=== PATIENT | female | born 1990 | race Caucasian/White ===

== ENCOUNTER 2016-11-22 15:51 | Emergency (ER) ==
--- NOTE | 2016-11-22 18:00 | PROVIDER DOCUMENTATION ---
HPI-General Adult - General Chief Complaint: Cold Symptoms Stated Complaint: CONGESTION/COUGH/BODY ACHES Time Seen by Provider: 11/22/16 17:53 Source: patient Allergies/Adverse Reactions: Patient Allergies Allergy/AdvReac Type Severity Reaction Status Date / Time latex Allergy HIVES Verified 08/11/15 22:54 Penicillins Allergy RASH Verified 08/11/15 22:54 - History of Present Illness -Gen Adult Nature of Presenting Problems: 26 y/o WF c/o cough, congestion, back pain x 2 days. Pt states coughing up green mucus. Denies any fever/chills, vomiting, abd. pain. States low back pain that is bilat. States no urinary sxs; currently on menstrual cycle. States nausea, diarrhea. LMP: 20 November 2016. States boyfriend is sick with similar sxs. Denies influenza vaccine. Review of Systems - Adult - REVIEW OF SYSTEMS - ADULT Constitutional: reports: no symptoms reported. denies: chills, fever Eyes: reports: no symptoms reported. denies: blurred vision, double vision Ears, Nose, Mouth & Throat: reports: no symptoms reported. denies: ear pain, nose pain Cardiovascular: reports: no symptoms reported. denies: chest pain, palpitations Respiratory: reports: see HPI, cough, wheezing. denies: shortness of breath Gastrointestinal: reports: see HPI, diarrhea, nausea. denies: abdominal pain, constipation, vomiting Genitourinary: reports: no symptoms reported. denies: dysuria, frequency Musculoskeletal: reports: see HPI, back pain. denies: joint pain, joint swelling Integumentary: reports: no symptoms reported. denies: nail changes, rash Neurological: reports: no symptoms reported. denies: headache/migraines, numbness, paresthesia Psychiatric: reports: no symptoms reported Endocrine: reports: no symptoms reported. denies: cold intolerance, heat intolerance Hematologic/Lymphatic: reports: no symptoms reported. denies: easy bruising, prolonged bleeding Allergic/Immunologic: reports: no symptoms reported All Other Systems: Reviewed and Negative Past History - Adult - PAST MEDICAL HISTORY-ADULT Review of Records: reports: Nursing Assessment Review, Medications Reviewed Major Childhood Illnesses: reports: denies history Cardiovascular: reports: denies history Respiratory: reports: asthma (seasonal asthma) Gastrointestinal: reports: denies history Obstetrical/Gynecological: reports: denies history Genitourinary: reports: denies history Musculoskeletal: reports: denies history Neurological: reports: denies history Endocrine/Immune: reports: denies history Other Conditions: reports: denies history - SOCIAL HISTORY Smoking: quit greater than 1 year Alcohol Use Frequency: never Physical Exam-General - PHYSICAL EXAM-ADULT Initial Vital Signs Reviewed: Yes - CONSTITUTIONAL General Appearance: alert, mild distress - EYES Eyes: pink conjunctivae - HEAD, EARS, NOSE, MOUTH & THROAT HENMT: normocephalic/atraumatic, moist mucous membranes, pharynx normal. negative: tonsillar exudate - NECK Neck: supple, normal inspection. negative: lymphadenopathy - RESPIRATORY Respiratory: crackles (bilat LL). negative: rales, rhonchi, stridor, wheezing - CARDIOVASCULAR Cardiovascular: regular rate, rhythm. negative: bradycardia, tachycardia - GASTROINTESTINAL (ABDOMEN) Abdominal Exam: normal bowel sounds, non tender, soft. negative: distended, guarding, rigid, rebound - MUSCULOSKELETAL Back Exam: normal inspection, no vertebral tenderness, other (bilat low back) Extremity: normal gait - SKIN Integumentary: normal color, normal turgor, warm/dry - NEUROLOGIC Neurologic: negative: aphasia - PSYCHIATRIC Psych/Mental Status: normal mood/affect, normal thought content, normal thought process, oriented x 3 Progress - PLAN OF CARE/RESULTS Progress/Plan/Lab Results: Laboratory Tests 11/22/16 18:07 Urine Source CLEAN CATCH Urine Color YELLOW Urine Turbidity HAZY Urine pH 6.5 Ur Specific [place] 1.024 Urine Protein TRACE A Ur Glucose (Stick) NEGATIVE Ur Ketones (Stick) TRACE A Urine Blood NEGATIVE Urine Nitrite NEGATIVE Urine Bilirubin NEGATIVE Urobilinogen Dipstick 3 A Urine Leukocytes MODERATE A Urine WBC (Auto) TNTC A Urine RBC (Auto) <10 U Epithel Cells (Auto) <10 Urine Bacteria (Auto) 2+ Orders Category Date Time Status ED: Urine Bedside ORDERED Care 11/22/16 17:56 Active CHEST-2 VIEWS [RAD] Stat Exams 11/22/16 17:56 Taken URINALYSIS W/POSS RFLX CULT [URINALYSIS] Stat Lab 11/22/16 18:07 Completed URINE CULTURE [RM] Routine Lab 11/22/16 18:24 Received Hydrocodone/APAP 7.5 mg/325 mg [[place]-7.5] Med 11/22/16 18:43 Discontinued 1 each PO NOW ONE Ondansetron Odt [Zofran Odt] Med 11/22/16 18:43 Discontinued 4 mg PO NOW ONE Vital Signs Temp Pulse Resp BP Pulse Ox 11/22/16 18:55 98.3 F 74 18 107/59 100 11/22/16 16:19 98.4 F 74 18 102/59 100 latex Allergy (Verified 08/11/15 22:54) HIVES Penicillins Allergy (Verified 08/11/15 22:54) RASH Meloxicam [Mobic] 7.5 mg PO DAILY PRN PRN #15 tablet 08/11/15 Cephalexin [Keflex] 500 mg PO BID #10 capsule 11/22/16 Guaifenesin/D-Methorphan Hb/PE [Deconex Dmx Tablet] 1 each PO TID #30 tablet 10/27 Ondansetron [Zofran] 4 mg PO Q6H PRN PRN #20 tablet 11/22/16 Prednisone 20 mg PO DAILY #12 tablet 11/22/16 I&O 11/21/16 11/22/16 11/23/16 06:59 06:59 06:59 Output Total 40 Balance -40 Laboratory 11/22/16 18:07 Urine Source CLEAN CATCH Urine Color YELLOW Urine Turbidity HAZY Urine pH 6.5 Ur Specific [place] 1.024 Urine Protein TRACE A Ur Glucose (Stick) NEGATIVE Ur Ketones (Stick) TRACE A Urine Blood NEGATIVE Urine Nitrite NEGATIVE Urine Bilirubin NEGATIVE Urobilinogen Dipstick 3 A Urine Leukocytes MODERATE A Urine WBC (Auto) TNTC A Urine RBC (Auto) <10 U Epithel Cells (Auto) <10 Urine Bacteria (Auto) 2+ Discussed results and f/u with pt. - XRAY 1 XRAY Study: Chest XRAY Interpretation: No PNA Departure - Departure Time of Disposition Order: 18:39 DIAGNOSIS: Nausea UTI (urinary tract infection) Qualifiers: Urinary tract infection type: acute cystitis Hematuria presence: with hematuria Qualified Code(s): N30.01 - Acute cystitis with hematuria URI (upper respiratory infection) Qualifiers: URI type: unspecified URI Qualified Code(s): J06.9 - Acute upper respiratory infection, unspecified Disposition: HOME 01 Certified Medical Emergency: Emergent Condition: Stable Additional Instructions: Take medications as directed. Follow up with PCP in 5-7 days for recheck. Drink plenty of fluids. ED Follow Up Instructions: You have been treated by a care provider in the Emergency Department. These instructions are being provided to you so you can have an understanding of how to care for yourself upon discharge. Upon discharge from the Emergency Department, you are responsible for making arrangements for follow-up care by a physician of your choice. Take all prescribed medications as directed. Return to the Emergency Department immediately for any new or worsening symptoms. You may call the Physician Referral phone number at [phone] to obtain a list of Physicians who are taking new patients. Prescriptions: Guaifenesin/D-Methorphan Hb/PE [Deconex Dmx Tablet] 1 each PO TID #30 tablet Cephalexin [Keflex] 500 mg PO BID #10 capsule Prednisone 20 mg PO DAILY #12 tablet Ondansetron [Zofran] 4 mg PO Q6H PRN PRN #20 tablet PRN Reason: Nausea Referrals: None,PCP [Primary Care Provider] - Forms: Return to School/Parent Work Instructions: Upper Respiratory Infection, Adult, Urinary Tract Infection, Easy -to-Read Attestation - Physician/ Mid-level Attestation Patient care was provided by Mid-level provider (FRONT DESK CLERK/PA):: Yes Mid-level provider:: Lesly Sanchez Mid-level documentation review:: The Mid-level provider documentation, treatment plan and medical decision making was reviewed by the physician who agrees with all treatment and medical decision making by the P.
[2016-11-22 18:15] LABS: URINE MICRO REVIEW NEEDED? NO; URINE SOURCE CLEAN CATCH
[2016-11-22 18:19] LABS: BILIRUBIN URINE NEGATIVE (NEGATIVE); BLOOD URINE NEGATIVE (NEGATIVE); COLOR YELLOW; GLUCOSE URINE NEGATIVE (NEGATIVE); LEUKOCYTES URINE MODERATE (NEGATIVE); NITRITE URINE NEGATIVE (NEGATIVE); PH URINE 6.5; PROTEIN URINE TRACE mg/dL (NEGATIVE); SP GRAVITY URINE 1.024; TURBIDITY URINE HAZY (CLEAR); UROBILINOGEN URINE 3 mg/dL (NORMAL)
[2016-11-22 18:20] LABS: UR EPITHELIAL CELLS <10 /HPF (<10); URINE BACTERIA 2+ /HPF; URINE CULTURE NEEDED? YES; URINE RBC <10 /HPF (<10); URINE WBC TNTC /HPF (<10)
[2016-11-22] MEDS ORDERED: NORCO-7.5 PO ONE (18:43)
[2016-11-22] MEDS ORDERED: ZOFRAN ODT PO ONE (18:43)
[2016-11-22 18:56] VITALS: BP 107/59
--- NOTE | 2016-11-23 07:48 | Diag Imaging Result Document ---
PROCEDURE NAME: CHEST-2 VIEWS - 11/22/2016 FRONTAL AND LATERAL CHEST, TWO VIEWS: FINDINGS: The lungs are well expanded. The heart is not enlarged. The vessels are not distended. There are no infiltrates. No pleural effusions. IMPRESSION: No pneumonia.
== END 2016-11-22 19:02 | disposition home or self-care (01) ==
LOC: ED 15:51
DX: J06.9 Acute upper respiratory infection, unspecified (principal); N30.01 Acute cystitis with hematuria; R11.0 Nausea; R05 Cough; R09.81 Nasal congestion; M54.5 Low back pain; R19.7 Diarrhea, unspecified; R06.2 Wheezing; Z87.891 Personal history of nicotine dependence
CPT/HCPCS: 71020; 81001; 81025; 87077; 87088; 99284